=== PATIENT | female | born 1965 | race Caucasian/White ===

== ENCOUNTER 2020-02-07 20:10 | Emergency (ER) | payer BC ==
[~2020-02-07] VITALS: Ht 175.3 cm; Wt 83.9 kg
[2020-02-07] MEDS ORDERED: LEVO-T75 MCG PO (20:37)
[2020-02-07] MEDS ORDERED: NORCO 5-325 TA1 EAC1 PO (21:43)
[2020-02-07] MEDS ORDERED: KEFLEX500 M1 PO (21:43)
[2020-02-07] MEDS ORDERED: ZOFRAN ODT4 MG DISSOLVE (21:43)
[2020-02-07 22:40] VITALS: BP 141/78
== END 2020-02-07 22:00 | disposition home or self-care (01) ==
LOC: ER 20:10
DX: S92.411B Displaced fracture of proximal phalanx of right great toe, initial encounter for open fracture (principal); Z79.899 Other long term (current) drug therapy; Z88.5 Allergy status to narcotic agent; W22.09XA Striking against other stationary object, initial encounter; Y93.01 Activity, walking, marching and hiking; Y92.098 Other place in other non-institutional residence as the place of occurrence of the external cause; Y99.8 Other external cause status